=== PATIENT | male | born 1930 | race Caucasian/White ===

== ENCOUNTER 2017-06-24 08:19 | Emergency (ER) | payer MEDICARE ==
[2017-06-24 09:43] LABS: Bilirubin Negative (Negative); Blood, Urine Large (Negative); Glucose, Urine (Dipstick) Negative (Negative); Ketone, Urine Negative (Negative); Nitrite Negative (Negative); Protein, Urine (Dipstick) Negative (Neg-Trace); Urobilinogen 0.2 mg/dL (0.2-1.0)
[2017-06-24 09:46] LABS: Bacteria/HPF None Seen HPF (None Seen); Hyaline Casts/LPF 0-3 HYALINE CAST LPF (0-3 Hyaline); Squamous Epithelial None Seen HPF (0-3); WBC/HPF None Seen HPF (0-3)
== END 2017-06-24 10:09 | disposition home or self-care (01) ==
LOC: ERS 08:19
DX: R33.9 Retention of urine, unspecified (principal); I11.0 Hypertensive heart disease with heart failure; I50.9 Heart failure, unspecified; Z87.891 Personal history of nicotine dependence
CPT/HCPCS: 51703; 81003; 81015; 87086

== ENCOUNTER 2018-01-03 09:21 | Emergency (ER) | payer MEDICARE | END 2018-01-03 10:58 | disposition home or self-care (01) | LOC: ERS 09:21 | DX: S01.01XA Laceration without foreign body of scalp, initial encounter (principal); I11.0 Hypertensive heart disease with heart failure; I50.9 Heart failure, unspecified; Z87.891 Personal history of nicotine dependence; W18.09XA Striking against other object with subsequent fall, initial encounter | CPT/HCPCS: 99283 ==

== ENCOUNTER 2019-04-30 11:19 | Outpatient (CLI) | payer MEDICARE ==
[2019-04-30 13:54] LABS: Hemoglobin 12.8 g/dL (14.0-18.0); Mean Corpuscular HGB CONC 33.6 g/dL (32.0-36.0); Mean Corpuscular Hemoglobin 32.2 pg (27.0-31.0); Mean Corpuscular Volume 95.6 fL (78.0-98.0); Mean Platelet Volume 8.2 fL (7.4-10.4); Platelet Count 209 thou/uL (130-400); RBC Distribution Width 11.8 % (11.5-14.5); Red Blood Cell (RBC) Count 3.98 mill/uL (4.70-6.10); White Blood Cell (WBC) Count 7.5 thou/uL (4.8-10.8)
[2019-04-30 14:13] LABS: Bacteria/HPF None Seen HPF (None Seen); Bilirubin Negative (Negative); Blood, Urine Negative (Negative); Clarity Clear (Clear); Glucose, Urine (Dipstick) Normal (Negative); Leukocyte 250 Leu/uL (Negative); Nitrite Negative (Negative); Protein, Urine (Dipstick) Negative (Neg-Trace); RBC/HPF 0-3 HPF (0-3); Squamous Epithelial None Seen HPF (0-3); Urobilinogen Normal mg/dL (Less than 2)
[2019-04-30 14:32] LABS: Anion Gap 13 mmol/L (10-20); BUN (Urea Nitrogen) 7 mg/dL (8.4-25.7); Calc. Creatinine Clearance 0 mL/min (70-130); Calcium 9.9 mg/dL (7.8-10.44); Carbon Dioxide 23 mmol/L (23-31); Chloride 106 mmol/L (98-107); Estimated GFR-MDRD 66; Glucose 81 mg/dL (83-110); Potassium 4.4 mmol/L (3.5-5.1); Sodium 138 mmol/L (136-145)
--- NOTE | 2019-05-03 10:09 | EKG ---
Test Reason : Blood Pressure : / mmHG Vent. Rate : 059 BPM Atrial Rate : 059 BPM P-R Int : 186 ms QRS Dur : 106 ms QT Int : 402 ms P-R-T Axes : 069 -29 013 degrees QTc Int : 397 ms Sinus bradycardia Possible Anterior infarct , age undetermined Abnormal ECG When compared with ECG of 13-APR-2016 17:40, Vent. rate has decreased BY 35 BPM Confirmed by JEFF PHILLIPS, OLIVIA ([id number]) on 05/03/2019 10:09:03 AM Referred By: CLARA Confirmed By:OLIVIA AGUILAR MD
== END 2019-04-30 11:20 | disposition home or self-care (01) ==
LOC: LABBT 11:19
PROVIDERS: ATTEND Urology
DX: Z01.818 Encounter for other preprocedural examination (principal); N40.1 Benign prostatic hyperplasia with lower urinary tract symptoms
CPT/HCPCS: 80048; 81001; 85027; 87086; 93005; 93010

== ENCOUNTER 2019-05-07 06:52 | Day surgery (SDC) | payer MEDICARE ==
[2019-04-30 11:25] VITALS: BMI 26.5
[2019-05-07] MEDS ORDERED: Levofloxacin 500 mg/D5W 100 ml Premix Bag ONE (08:06)
[2019-05-07] MEDS ORDERED: Fentanyl 100 MCG/2 ML VIAL ONE (10:15)
[2019-05-07] MEDS ORDERED: Oxybutynin 5 MG TAB ONE (11:16)
[2019-05-07] MEDS ORDERED: Phenazopyridine HCl 97.5 MG TABLET ONE (11:16)
[2019-05-07] MEDS ORDERED: Ketorolac Tromethamine 30 MG/ML VIAL ONE (11:16)
--- NOTE | 2019-05-07 12:12 | OP ---
DATE OF PROCEDURE: 05/07/2019 PREOPERATIVE DIAGNOSIS: Lower urinary tract symptoms due to large prostate. POSTOPERATIVE DIAGNOSIS: Lower urinary tract symptoms due to large prostate. PROCEDURE PERFORMED: Implantation of prostatic urethral lift device. ANESTHESIA: Modified anesthesia care. BLOOD LOSS: 30 mL. COMPLICATIONS: None. SPECIMENS: None. IMPLANTS UTILIZED: Seven. DESCRIPTION OF PROCEDURE: After an informed consent, the patient was taken to the operating room, transferred to the table on his own power. Anesthesia was established. A time-out was performed, showing the correct patient, site, and procedure. Preoperative antibiotics were administered. He was prepped and draped in the lithotomy position. A 20-Hungarian cystoscope was inserted into the bladder. The cystoscopy bridge ws replaced with UroLift delivery device. The 1st treatment set was the patient's left side approximately 2 cm distal to the bladder neck. The distal tip of the delivery device was then angled laterally approximately 20 degrees of this position to compress the lateral lobe. The trigger was pulled out. Attempt was made to deploy the needle. This attempt was unsuccessful. We then replaced the device and attempted once again. The needle was deployed, contained the implant through the prostate. The needle was then retracted, allowing one end of the implant to be delivered to the capsular surface of the prostate. The implant was then tensioned to assure capsular seeding and removal of the slack monofilament. The device was then able to back toward the midline and slowly advanced proximally until cystoscopic verification of the monofilament being centered in the delivery bay. The urethral end piece was then affixed to the monofilament, thereby tailoring the size of the implant. Excess film was then severed. The delivery device was then readvanced into the bladder. The delivery device was then replaced with the cystoscope and bridge, and the implant location and opening affect was confirmed cystoscopically. The same procedure was repeated on the right side near the bladder neck. Following the 2nd implant, two additional implants, 3rd and 4th implant were delivered just proximal to the verumontanum. Again, one on the right and one on the left side of the prostate. Cystoscopy then revealed a persistent area of obstruction and 3 more implants were delivered in the mid prostate. First on the left, then the right, and the 7th implant was placed on the patient's right side as well. After this, a final cystoscopic view revealed no further obstruction. Total number of implants were seven. Final cystoscopy was conducted 1st to inspect location set of each implant, 2nd to confirm the presence of a continuous anterior channel through the prostatic urethra with irrigation flow turned off. The patient was then awoken from anesthesia, transferred back to his hospital bed, and taken to Recovery in stable condition. IMPLANT LOCATION SUMMARY: 1. Implant 1: Left proximal prostatic urethra. 2. Implant 2. Right proximal prostatic urethra. 3. Implant 3. Left distal prostatic urethra proximal to verumontanum. 4. Implant 4: Right distal prostatic urethra proximal to verumontanum. 5. Implant 5: Left mid prostatic urethra. 6. Implant 6: Right mid prostatic urethra. 7. Implant 7. Right mid prostatic urethra. CRITERIA: Met. The patient with no active UTI, conservative management failed, and surgical intervention is indicated. IPSS 19/5. Prostate channel 4 cm. Job ID: [id number]
== END 2019-05-07 16:15 | disposition home or self-care (01) ==
LOC: SDC 06:52
PROVIDERS: ATTEND Urology
PROC: 0T7D8DZ Dilation of Urethra with Intraluminal Device, Via Natural or Artificial Opening Endoscopic (ICD-10-PCS; principal; 2019-05-07)
DX: N40.1 Benign prostatic hyperplasia with lower urinary tract symptoms (principal); R33.8 Other retention of urine; I11.0 Hypertensive heart disease with heart failure; I50.9 Heart failure, unspecified; K21.9 Gastro-esophageal reflux disease without esophagitis; Z85.51 Personal history of malignant neoplasm of bladder; Z87.891 Personal history of nicotine dependence; Z79.2 Long term (current) use of antibiotics; Z79.899 Other long term (current) drug therapy
CPT/HCPCS: J1885; J1956; J3010

== ENCOUNTER 2019-11-29 17:07 | Emergency (ER) | payer MEDICARE | END 2019-11-29 18:32 | disposition left against medical advice (07) | LOC: ERS 17:07 | DX: Z53.21 Procedure and treatment not carried out due to patient leaving prior to being seen by health care provider (principal) ==